=== PATIENT | female | born 2000 | race Caucasian/White ===

== ENCOUNTER → 2024-10-27 15:39 | Outpatient (CLI) | payer OTHER, SELFPAY ==
[2024-10-27 20:56] LABS: Urine Chlamydia NOT DETECTED; Urine N gonorrhoeae NOT DETECTED
== END ==
PROVIDERS: PCP Nurse Practitioner Family; Visit Provider Student in an Organized Health Care Education/Training Program
DX: Z34.80 Encounter for supervision of other normal pregnancy, unspecified trimester (principal)
CPT/HCPCS: 87491; 87591

== ENCOUNTER → 2024-11-17 13:14 | Outpatient (CLI) | payer OTHER, SELFPAY ==
[2024-11-17 14:20] LABS: Natera Collection Specimen Collected
[2024-11-17 15:05] LABS: Add Manual Diff / Slide Review NO; Basophils Absolute Auto 0 /uL (0-100); Basophils Percent Auto 0.2 % (0-2); Eosinophils Absolute Auto 100 /uL (0-450); Eosinophils Percent Auto 0.9 % (2-4); Hematocrit 36.3 % (36-46); Hemoglobin 12.3 g/dL (12.0-16.0); Lymphocytes Absolute Auto 1000 /uL (1100-4500); Mean Corpuscular Hemoglobin 29.3 PG (26-34); Monocytes Absolute Auto 300 /uL (0-900); Monocytes Percent Auto 4.5 % (3-14); Neutrophils Absolute Auto 5700 /uL (1500-7000); Neutrophils Percent Auto 80.4 % (50-75); Platelet Count 174 X10^3/uL (150-400); Red Blood Cell Count 4.22 X10^6/uL (4.0-5.2); Red Cell Distribution Width 13.1 % (11.6-14.8); White Blood Cell Count 7.1 X10^3/uL (4.5-11.0)
[2024-11-17 15:59] LABS: Hepatitis B Surface Antigen NEGATIVE s/c (NEGATIVE); Rubella Antibody IgG 26.4 IU/mL (>15)
[2024-11-17 16:14] LABS: HIV 1 & 2 Ab/Ag 4th Gen Combo NEGATIVE (NEGATIVE); Hep C Virus Ab w/Reflex Quant NEGATIVE s/c (NEGATIVE)
[2024-11-19 05:15] LABS: RPR Screen Non Reactive (Non Reactive)
[2024-11-19 06:07] LABS: Varicella IgG Antibody Non Reactive (Non Reactive)
== END ==
PROVIDERS: PCP Nurse Practitioner Family; Referring Provider Student in an Organized Health Care Education/Training Program; Visit Provider Student in an Organized Health Care Education/Training Program
DX: Z34.81 Encounter for supervision of other normal pregnancy, first trimester (principal)
CPT/HCPCS: 36415; 80055; 86787; 86803; 86850; 86900; 86901; 87389

== ENCOUNTER → 2025-01-12 06:59 | Outpatient (CLI) | payer OTHER, SELFPAY ==
--- NOTE | 2025-01-12 07:01 | DI.US.S_ITS ---
PROCEDURE: US OB >= 14 WEEKS FETUS INDICATIONS: 20 WEEK ANATOMY SCAN OUTSIDE/PRIOR DATING DATA: The calculations are made using the working MARIVEL of 06/01/2025. TECHNIQUE: Real-time scanning was performed of the fetus, with image documentation and biometric measurements. Endovaginal scanning: Not performed COMPARISON: None. FINDINGS: General: A single living intrauterine gestation is present. Presentation: Breech. Placenta: Placental position is posterior , without previa. Amniotic fluid index: 15.2 cm, normal range is 5-24 cm. Single deepest vertical pocket is 5.2 cm. heart rate: 136 beats per minute. Maternal cervical canal: 3.6 cm long. Normal lower limit is 2.5 cm. biometrics: Biparietal diameter: 4.8 cm, 20 weeks 3 days Head circumference: 17.6 cm, 20 weeks 1 day Abdominal circumference: 15.3 cm, 20 weeks 4 days Femur length: 3.0 cm, 19 weeks 3 days Clinically estimated gestational age: 20 weeks 0 days Composite gestational age from present scan: 20 weeks 1 day Estimated weight and percentile: 327 g, 46 percentile Anatomic survey: Neuro: Ventricles are non-dilated at less than 10 mm. Cisterna magna is normal at 3-11 mm. Cerebellum is normal in size and morphology. Nuchal skin fold: Normal at less than 6 mm between 14-21 weeks gestational age. Face: Nose and lips, facial profile are normal. Spine: No evidence for spina bifida. Heart: 4-chambered heart is present. Right ventricular outflow tract is not well visualized. Diaphragm: Diaphragm is intact. Stomach: Left-sided stomach is present. Kidneys: No hydronephrosis. Normal is less than 5 mm in 2nd trimester, less than 7 mm in 3rd trimester. Cord: 3-vessel cord has orthotopic insertion. Bladder: Normal in size. Extremities: All 4 extremities identified. IMPRESSION: Single living intrauterine at 20 weeks 0 days, MARIVEL of 06/01/2025. Estimated weight of 327 g, 46 percentile. Right ventricular outflow tract not well visualized. Recommend short-term follow-up. We strive to produce accurate, complete, and clear reports of imaging services. To assist us in improving patient care, this report was composed using standard report templates and voice recognition software. Therefore, it may contain abnormal punctuation, insertions and/or omissions. Occasional wrong-word or sound-alike substitutions may occur. Though we review the report and make efforts to correct it, we do recommend that the report be read carefully in proper context to recognize any text inaccuracies. Dictated by: Etienne Jackson M.D. on 01/12/2025 at 16:34 Approved by: Etienne Jackson M.D. on 01/12/2025 at 16:36
== END ==
PROVIDERS: PCP Nurse Practitioner Family; Referring Provider Student in an Organized Health Care Education/Training Program; Visit Provider Student in an Organized Health Care Education/Training Program
DX: Z34.92 Encounter for supervision of normal pregnancy, unspecified, second trimester (principal); Z3A.20 20 weeks gestation of pregnancy
CPT/HCPCS: 76811

== ENCOUNTER → 2025-02-10 10:47 | Outpatient (CLI) | payer OTHER, SELFPAY ==
--- NOTE | 2025-02-10 10:49 | DI.US.S_ITS ---
PROCEDURE: US OB FOLLOW UP INDICATIONS: RE-EVAL RVOT OUTSIDE/PRIOR DATING DATA: Working MARIVEL 06/01/2025 TECHNIQUE: Real-time scanning was performed of the fetus, with image documentation. COMPARISON: [facility], , OB >= 14 WEEKS FETUS, 01/12/2025, 7:16. FINDINGS: A single living intrauterine gestation is present. Presentation: Breech. Placenta: Placental position is posterior, without previa. Amniotic fluid index: 18 cm, normal range is 5-24 cm. Single deepest vertical pocket is 5.3 cm. heart rate: 144 beats per minute. Maternal cervical canal: 4.2 cm long. Normal lower limit is 2.5 cm. Clinically estimated gestational age: 24 weeks and 1 day RVOT is only seen on cine images. IMPRESSION: RVOT only captured on cine images, no gross abnormality identified, however still not fully seen on a single still image. Breech positioning. Normal CAROLINE. Dictated by: Juan Jose Hobson M.D. on 02/10/2025 at 16:27 Approved by: Juan Jose Hobson M.D. on 02/10/2025 at 16:31
== END ==
PROVIDERS: Referring Provider Student in an Organized Health Care Education/Training Program; Visit Provider Student in an Organized Health Care Education/Training Program
DX: Z34.82 Encounter for supervision of other normal pregnancy, second trimester (principal); Z3A.24 24 weeks gestation of pregnancy
CPT/HCPCS: 76816

== ENCOUNTER → 2025-02-26 10:26 | Outpatient (CLI) | payer OTHER, SELFPAY ==
[2025-02-26 12:24] LABS: Hematocrit 31.5 % (36-46); Hemoglobin 11.1 g/dL (12.0-16.0)
[2025-02-26 13:33] LABS: GTT (PREG) 1 Hour PP 50gm Dose 90 mg/dL (76-139)
== END ==
PROVIDERS: Referring Provider Student in an Organized Health Care Education/Training Program; Visit Provider Student in an Organized Health Care Education/Training Program
DX: Z13.0 Encounter for screening for diseases of the blood and blood-forming organs and certain disorders involving the immune mechanism (principal); Z13.1 Encounter for screening for diabetes mellitus
CPT/HCPCS: 82950; 85014; 85018

== ENCOUNTER → 2025-05-06 15:46 | Outpatient (CLI) | payer OTHER, SELFPAY ==
[2025-05-07 12:21] LABS: Strep Grp B PCR NEG for Grp B Strep
== END ==
PROVIDERS: Visit Provider Obstetrics & Gynecology
DX: Z34.93 Encounter for supervision of normal pregnancy, unspecified, third trimester (principal); Z3A.36 36 weeks gestation of pregnancy
CPT/HCPCS: 87653

== ENCOUNTER 2025-05-06 16:02 | Observation (INO) | payer OTHER, SELFPAY ==
--- NOTE | 2025-05-06 16:16 | DI.US.S_ITS ---
PROCEDURE: US OB BIOPHYSICAL PROFILE INDICATIONS: low amniotic fluid OUTSIDE/PRIOR DATING DATA: Last menstrual period (LMP): 08/25/2024. LMP-based estimated date of delivery (MARIVEL): 06/01/2025. The calculations are made using the clinical MARIVEL of 06/01/2025. TECHNIQUE: Real-time scanning was performed of the fetus, with image documentation and biometric measurements. Biophysical profile was also obtained. COMPARISON: [facility], OB FOLLOW UP, 02/10/2025, 11:04. FINDINGS: General: A single living intrauterine gestation is present. Presentation: Vertex. Placenta: Placental position is posterior , without previa. Amniotic fluid index: 7.3 cm, normal range is 5-24 cm. Single deepest vertical pocket is 2.8 cm. heart rate: 145 beats per minute. Maternal cervical canal: Not well seen Gestational age: 36 weeks 2 days Biophysical profile: Tone: 2 points. Movement: 2 points. Respiration: 2 points. Largest pocket of fluid: 2 points. IMPRESSION: Single live intrauterine with gestational age of 36 weeks 2 days. CAROLINE is within normal limits. BPP 8/8. We strive to produce accurate, complete, and clear reports of imaging services. To assist us in improving patient care, this report was composed using standard report templates and voice recognition software. Therefore, it may contain abnormal punctuation, insertions and/or omissions. Occasional wrong-word or sound-alike substitutions may occur. Though we review the report and make efforts to correct it, we do recommend that the report be read carefully in proper context to recognize any text inaccuracies. Dictated by: Maria Isabel Catalan M.D. on 05/06/2025 at 18:38 Approved by: Maria Isabel Catalan M.D. on 05/06/2025 at 18:40
--- NOTE | 2025-05-06 18:53 | PM.OBTRLD ---
Visit Information Visit Information Date of evaluation: 05/06/25 Primary OB Provider: Yessy Loja On-call OB Provider: Milena Cruz Reason for Evaluation: Yes non-stress test non-stress test reason: other (Positive for COVID, low fluid in the office) Comments/Additional reasons for admission: Patient is a 24-year-old 3 para 1 at 36-,2/7 weeks gestation who was sent to the center from the office for low fluid on ultrasound and positive COVID. Patient has upper respiratory symptoms. No significant cough. Good movement. No leakage of fluid or vaginal bleeding. [facility] Medical History (Updated 05/06/25 @ 15:58 by Danielle Church MD) COVID-19 affecting in third trimester Stress headaches Surgical History (Updated 10/21/24 @ 08:34 by Marguerite Saldivar, RN) H/O knee surgery Family History (Updated 10/21/24 @ 08:40 by Marguerite Saldivar, RN) Father Hypertension Diabetes mellitus Mother Hypertension Diabetes mellitus Sister Hypertension Diabetes mellitus Infertility Grandmother Diabetes mellitus Hyperlipidemia Hypertension Kidney failure Aunt Stomach cancer Uncle Lung cancer Uncle Kidney failure Pancreatic cancer Aunt Breast cancer Uncle Leukemia Social History marital status: details: : Felix Rueda number of children: 1 household members: spouse and children lives independently: Yes caregiver/support person: No housing: house pets and animals: No education level: high school 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 ) second hand exposure: No alcohol intake: former (3-4 drinks a month) substance use type: does not use during the past year weight has: decreased > 10 lbs (Lost 60 pounds working out and eating well in [place]) well-balanced diet: daily or most days daily servings fruits/ve or more times/day caffeine: No eating out: rarely or never Type(s) of exercise: walking, aerobic and weight lifting frequency: 5-6 times per week duration: 30-45 minutes/day Objective Labs Labs: Biophysical profile: 08/14. CAROLINE 7.3 cm Evaluation Evaluation Baseline heart rate: 135 Variability: Moderate (6-25) monitor accelerations: Present Monitor Decelerations: Absent Category of Tracing: Reactive Status: Category l Diagnosis, Plan/Disposition Plan/Disposition Plan: Assessment: 24-year-old 3 para 1 at 36-,2/7 weeks gestation Borderline amniotic fluid index BPP 08/14 Positive for COVID Plan: Follow-up in 5 days for repeat BPP and NST and CAROLINE Discussed kick counts and would like patient to do these 3 times a day Patient is to be off of work until delivery OB Disposition: home
== END 2025-05-06 18:53 | disposition home or self-care (01) ==
PROVIDERS: Admitting Provider Obstetrics & Gynecology; Referring Provider Obstetrics & Gynecology; Visit Provider Obstetrics & Gynecology
DX: O41.03X0 Oligohydramnios, third trimester, not applicable or unspecified (principal); O98.513 Other viral diseases complicating pregnancy, third trimester; U07.1 COVID-19; Z3A.36 36 weeks gestation of pregnancy
CPT/HCPCS: 59025; 76819; 87653; G0378; G0379

== ENCOUNTER 2025-05-11 12:55 | Outpatient (CLI) | payer OTHER, SELFPAY ==
--- NOTE | 2025-05-11 13:02 | DI.US.S_ITS ---
PROCEDURE: US OB BIOPHYSICAL PROFILE INDICATIONS: oligohydramnios-37 weeks OUTSIDE/PRIOR DATING DATA: Working MARIVEL: 06/01/2025 TECHNIQUE: Real-time scanning was performed of the fetus for biophysical profile, with image documentation. Endovaginal scanning: Not performed COMPARISON: [facility], , OB BIOPHYSICAL PROFILE, 05/06/2025, 17:32. FINDINGS: General: A single living intrauterine gestation is present. Presentation: Vertex. Placenta: Placental position is posterior , without previa. Amniotic fluid index: 9.5 cm, normal range is 5-24 cm. Single deepest vertical pocket is 5.4 cm. heart rate: 137 beats per minute. Maternal cervical canal not imaged. Clinically estimated gestational age: 37 weeks 0 days Biophysical profile: Tone: 2 points. Movement: 2 points. Respiration: 2 points. Largest pocket of fluid: 2 points. Umbilical artery Doppler: Not requested IMPRESSION: Single living intrauterine at 37 weeks 0 days. BPP 8 of 8. CAROLINE of 9.5 cm, deepest pocket of 5.4 cm. We strive to produce accurate, complete, and clear reports of imaging services. To assist us in improving patient care, this report was composed using standard report templates and voice recognition software. Therefore, it may contain abnormal punctuation, insertions and/or omissions. Occasional wrong-word or sound-alike substitutions may occur. Though we review the report and make efforts to correct it, we do recommend that the report be read carefully in proper context to recognize any text inaccuracies. Dictated by: Etienne Jackson M.D. on 05/11/2025 at 13:43 Approved by: Etienne Jackson M.D. on 05/11/2025 at 13:43
== END 2025-05-11 13:42 | disposition home or self-care (01) ==
LOC: LABOR 13:33 → OB 14:09
PROVIDERS: Referring Provider Obstetrics & Gynecology; Visit Provider Obstetrics & Gynecology
DX: O41.03X0 Oligohydramnios, third trimester, not applicable or unspecified (principal); Z3A.37 37 weeks gestation of pregnancy
CPT/HCPCS: 59025; 76819; G0378; G0379

== ENCOUNTER 2025-05-26 19:28 | Inpatient (IN) | payer OTHER, SELFPAY ==
[2025-05-26 20:27] LABS: Add Manual Diff / Slide Review NO; Hematocrit 32.3 % (36-46); Hemoglobin 11.3 g/dL (12.0-16.0); Lymphocytes Absolute Auto 1100 /uL (1100-4500); Mean Corpuscular HGB Conc 34.9 % (30-36); Mean Corpuscular Hemoglobin 29.8 PG (26-34); Mean Corpuscular Volume 85.4 fL (80-100); Platelet Count 153 X10^3/uL (150-400)
[2025-05-26] MEDS: DINOPROSTONE VAG (CERVIDIL) 10 MG VAG (21:37)
--- NOTE | 2025-05-27 07:53 | P.HPOB_ITS ---
OB HPI Date/Time Date of admission: 05/26/25 Date Patient Seen: 05/27/25 Time Patient Seen: 07:15 History of Present Condition Chief complaint: IOL MARIVEL Calculator 2 Estimated Delivery Date Method Current WG Current Estimate 06/01/25 Ultrasound #1 39w 2d Other Estimates 05/22/25 LMP (Certain) 40w 5d Estimated Gestational Age (weeks): 39.2 : 3 Para: 1 Narrative: 24yo at 39w2d by 9wk US admitted overnight for cervical ripening with planned IOL at term. OBHx notable for prior x1 (2020). course notable for +COVID at 36wga with mild symptoms, GBS negative, rubella immune. Patient admitted yesterday evening and cervidil placed for cervical ripening at 2100. Pt endorses good FM, denies VB, LOF, dysuria. Increasing cramping with occasional painful contractions. Agreeable to SVE with attempt at cervical bulb placement for further mechanical cervical ripening. Dating criteria OB: based on 1st trimester US only Ultrasounds: normal mid trimester US Abnormal ultrasound findings: limited visualization of RVOT without identified abnormality Obstetrical complications: other (mild COVID at 36wga ) Medical complications OB: none Indications Indication for induction OB: other (elective ) Preadmission Labs Last OB Lab Results: 2 Blood Type O Positive 05/26/25, 20:15 Antibody Screen Negative 05/26/25, 20:15 Hct, (36-46) 32.3 % L 05/26/25, 20:15 Hgb, (12.0-16.0) 11.3 g/dL L 05/26/25, 20:15 Hep Bs Antigen, (NEGATIVE) Negative s/c 11/17/24, 13: 20 Hepatitis C Antibody, (NEGATIVE) Negative s/c 5, 13:20 Rubella Antibody, (>15) 26.4 IU/mL 11/17/24, 13:20 VZV IgG Antibody, (Non Reactive) Non reactive 5, 13:20 Glucose 1 Hr 50 gm, (76-139) 90 mg/dL 02/26/25, 1 1:34 Group B Strep (PCR) Neg for grp b strep 05/06/25, 15:15 -: Chlamydia screen: negative and Gonorrhea screen: negative -: PAP smear: Abnormal (NILM/HPV+, repeat co-testing ) Genetic Screens: Cell-free DNA: Normal (low risk XX) and Alpha-fetoprotein: Normal Prior (ies) Past Pregnancies Del. Date GA/Weeks Labor Lgth Wt Sex Route Outcome Anesthesia Place Delv Breastfeed Preg Comp Name 07/06/20 6 wk 10/15/21 39.4 32 7 lb 13 oz Male vaginal live - full te rm epidural [facility] 6 months [place] Delivery Date: 07/06/20 Last Updated by: Marguerite Saldivar RN Suspected triplet , miscarriage. Treated with cytotec, hemorrhaged, went to ER and had D&C at [facility] Delivery Date: 10/15/21 Last Updated by: Marguerite Saldivar RN elective induction, no complications. Tolerated epidural well Hx # Term Pregnancies: 1 Number of Living Children: 1 Spontaneous abortions: 1 Evaluation Evaluation Baseline heart rate: 140 Variability: Moderate (6-25) monitor accelerations: Present Monitor Decelerations: Absent Contraction Frequency (minutes): 5 Uterine Contraction Intensity: Mild Category of Tracing: Reactive Status: Category l Dilation (cm): 1 Effacement (%): 30 Dilation: 1-2 cm Effacement: 0-30% station: -4 Position of cervix: posterior Consistency: firm Garcia score: 1 PFSH Medical History (Updated 05/06/25 @ 15:58 by Danielle Church MD) COVID-19 affecting in third trimester Stress headaches Surgical History (Updated 10/21/24 @ 08:34 by Marguerite Saldivar RN) H/O knee surgery Family History (Updated 10/21/24 @ 08:40 by Marguerite Saldivar RN) Father Hypertension Diabetes mellitus Mother Hypertension Diabetes mellitus Sister Hypertension Diabetes mellitus Infertility Grandmother Diabetes mellitus Hyperlipidemia Hypertension Kidney failure Aunt Stomach cancer Uncle Lung cancer Uncle Kidney failure Pancreatic cancer Aunt Breast cancer Uncle Leukemia Social History marital status: details: : Felix Rueda number of children: 1 household members: spouse and children lives independently: Yes caregiver/support person: No housing: house pets and animals: No education level: high school 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 ) second hand exposure: No alcohol intake: former (3-4 drinks a month) substance use type: does not use during the past year weight has: decreased > 10 lbs (Lost 60 pounds working out and eating well in [place]) well-balanced diet: daily or most days daily servings fruits/ve or more times/day caffeine: No eating out: rarely or never Type(s) of exercise: walking, aerobic and weight lifting frequency: 5-6 times per week duration: 30-45 minutes/day Meds Home Medications and Allergies Home Medications ?Medication ?Instructions ?Recorded ?Confirmed ?Type vitamin#30 30 mg iron-10 1 cap PO DAILY 10/2105/27/25 History mg iron-folic acid 1 mg-omg3 capsule [id number]-mdlxvndf 1 cap PO Q8H PRN jeff n #14 caps 02/16/25 05/26/25 Rx 50 mg-300 mg-40 mg capsule (Fioricet) magnesium sulfate 100 mg capsule 100 mg PO DAILY #90 c aps 02/16/25 05/26/25 Rx breast pump #1 ea 04/13/25 05/26/25 Rx Allergies Allergy/AdvReac Type Severity Reaction Status Date / Time No Known Allergies Allergy Verified 05/26/25 20:06 Review of Systems Review of Systems ROS: Yes All systems reviewed with the patient and are negative except as otherwise documented OB Exam Vital signs Blood Pressure: 105/56 Pulse Rate: 78 Respiratory Rate: 18 Temperature: 35.8 F HENMT Head: normal to inspection Resp Effort & Inspection: normal respiratory effort and able to speak in complete sentences Auscultation: clear to auscultation bilaterally Cardio Rate: regular rate Rhythm: regular rhythm Extremities Lower extremity: Yes normal to inspection GI Palpation: Yes soft Other: gravid, goldy cephalic 7.5# External Female Exam: Yes normal external appearance Other: bullard balloon placed with some difficulty secondary to posterior location/minimal effacement, instilled with 30cc saline Objective Labs 05/26/25 20:15 Labs: Laboratory Results - last 24 hr 05/26/25 20:15 WBC 9.1 RBC 3.78 L Hgb 11.3 L Hct 32.3 L MCV 85.4 MCH 29.8 MCHC 34.9 RDW 14.8 Plt Count 153 Neut % (Auto) 81.9 H Lymph % (Auto) 12.0 L Carson % (Auto) 4.6 Eos % (Auto) 1.1 L Baso % (Auto) 0.4 Neut # (Auto) 7400 H Lymph # (Auto) 1100 Carson # (Auto) 400 Eos # (Auto) 100 Baso # (Auto) 0 Blood Type O Positive Antibody Screen Negative Assessment and Plan Assessment and Plan Assessment and Plan narrative: 24yo at 39w2d by 9wk US presents for scheduled elective IOL IOL pt counseled on and in agreement with recommendation to start with mechanical ripening with placement of bullard balloon; pt tolerated placement well plan to start pitocin in 4-6h pending response to bullard, encourage ambulation in early labor GBS neg, rubella immune, remainder PNL as above and wnl patient is consented for induction of labor, vaginal/vaginal operative/ delivery as well as tranfusion of blood products as medically indicated anticipate Time-Based Coding :: [TOTAL MINUTES] spent with patient and on the chart (including review of chart, obtaining history, exam, reviewing outside data, placing orders, documenting exam and treatment plan, and counseling patient) on [DATE].
[2025-05-27 08:06] VITALS: BP 105/56; PULSE 78; RESP 18; TEMP 2.1; TEMP 35.8
--- NOTE | 2025-05-27 11:07 | PM.OBPNLAB ---
Date/Time Date Patient Seen: 05/27/25 Time Patient Seen: 11:07 Pain Control Pain control: tolerating well Comments: spontaneous expulsion of bullard balloon at 10:00 Pelvic Exam Dilation (cm): 2 Effacement (%): 50 station: -4 Amniotic membrane status: Intact Comments: bedside US confirms cephalic presentation Contractions Contractions on admission: none Monitor mode: External Contraction intensity: Mild Status status: Category l Heart Rate Baseline: 140 Monitor Accelerations: Present Monitor Decelerations: Absent Monitor Variability: Moderate Assessment and Plan Assessment: induction ongoing Comments: misoprostol 25mcg buccal q3h, reassess after 2 doses with planned replacement of bullard balloon vs initiation of pitocin cat 1 tracing maternal VSS/afebrile anticipate
--- NOTE | 2025-05-27 17:15 | PM.OBPNLAB ---
Date/Time Date Patient Seen: 05/27/25 Time Patient Seen: 17:15 Pain Control Pain control: tolerating well Comments: pt resting comfortably, states contractions/cramping is lasting longer but not necessarily more painful. Amenable to interval SVE Pelvic Exam Dilation (cm): 4 Effacement (%): 50 station: -3 Amniotic membrane status: Intact Contractions Contractions on admission: none Monitor mode: External Contraction intensity: Mild Status status: Category l Heart Rate Baseline: 140 Monitor Accelerations: Present Monitor Decelerations: Absent Monitor Variability: Moderate Assessment and Plan Assessment: induction ongoing Comments: s/p miso x2 with appropriate response start IV pitocin CEFM/toco cat 1 tracing, maternal VSS/afebrile Pt to request epidural PRN, anticipate AROM for further augmentation anticipate
[2025-05-27] MEDS: OXYTOCIN PREMIX 30 UNIT/500 ML PLAST..BAG IV (17:30)
[2025-05-27] MEDS: LACTATED RINGERS 1,000 ML 100 ML IV ×2 (17:34→22:46)
--- NOTE | 2025-05-27 22:18 | PM.AN.REGBLK ---
[facility] <Nadia Renee CRNA - Last Filed: 05/29/25 08:10> Pre-procedure Procedure: Continuous Lumbar Epidural for L&D Attending OB provider: Danielle Church PMH/ROS narrative: Healthy here for IOL requesting DIEGO for labor pain. PSH/Anesthesia history narrative: Knee surgery and previous epidural without anesthetic complications. Exam narrative: See pre-anesthesia eval. ASA Class: II Labs: Hct 32.3 % (36-46) L 05/26/25 20:15 Plt Count 153 X10^3/uL (150-400) 05/26/25 20:15 Medications: Current Medications Generic Name Dose Route Start Last Admin Trade Name Freq PRN Reason Stop Dose Admin Butorphanol Tartrate 0.5 mg 05/27/25 22:16 Butorphanol 1 Mg/Ml Vial IV 05/28/25 22:17 Q3HR PRN PRURITUS Calcium Carbonate 1,000 mg 05/26/25 19:38 Calcium Carbonate 500 Mg Tab PO Q2HR PRN Dyspepsia Carboprost Tromethamine 250 mcg 05/26/25 19:38 Carboprost 250 Mcg/Ml Ampul IM Q90M PRN Bleeding Diphenhydramine HCl 25 mg 05/27/25 22:16 Diphenhydramine 50 Mg/Ml Vial IV 05/28/25 22:17 Q3HR PRN PRURITUS Tranexamic Acid 1,000 mg/ 100 mls @ 600 mls/hr 05/26/25 19:38 Sodium Chloride IV NOW PRN Bleeding Oxytocin/Lactated Ringer's 30 unit in 500 mls @ 200 mls/hr 05/26/25 19:38 Oxytocin Premix IV CONT PRN Bleeding Protocol Oxytocin/Lactated Ringer's 30 unit in 500 mls @ 2 mls/hr 05/27/25 17:16 05/27/25 17:30 Oxytocin Premix IV 2 milliunit/min TITRATE LEONARDO 2 mls/hr Protocol Administration 2 MILLIUNIT/MIN Lidocaine HCl 20 ml 05/26/25 19:38 Lidocaine 1% 20 Ml INJ INTRA-OP PRN Post Delivery Methylergonovine Maleate 0.2 mg 05/26/25 19:38 Methylergonovine 0.2 Mg/Ml Vial IM NOW PRN Bleeding Methylergonovine Maleate 0.2 mg 05/26/25 19:38 Methylergonovine 0.2 Mg Tablet PO Q6HR PRN Heavy Bleeding Metoclopramide HCl 10 mg 05/27/25 22:16 Metoclopramide 10 Mg/2 Ml Inj IV 05/28/25 22:17 Q4H PRN Nausea Misoprostol 400 mcg 05/26/25 19:38 Misoprostol 200 Mcg Tablet SL NOW PRN Bleeding Misoprostol 800 mcg 05/26/25 19:38 Misoprostol 200 Mcg Tablet SC NOW PRN Bleeding Nalbuphine HCl 5 mg 05/27/25 22:16 Nalbuphine 20 Mg/Ml Ampul IV Q6H PRN PRURITIS Naloxone HCl 0.2 mg 05/26/25 19:38 Naloxone 0.4 Mg/Ml Vial IV Q2MIN PRN Opiate Reversal Naloxone HCl 0.4 mg 05/27/25 22:16 Naloxone 0.4 Mg/Ml Vial IV Q2MIN PRN Opiate Reversal Ondansetron HCl 4 mg 05/26/25 19:38 Ondansetron 4 Mg/2 Ml Inj IV Q4HR PRN Nausea And Vomiting Ondansetron HCl 4 mg 05/27/25 22:16 Ondansetron 4 Mg/2 Ml Inj IV 05/28/25 22:17 Q6HR PRN Nausea Oxytocin 10 unit 05/26/25 19:38 Oxytocin 10 Unit/Ml Vial IM NOW PRN Bleeding Allergies: Allergies Allergy/AdvReac Type Severity Reaction Status Date / Time No Known Allergies Allergy Verified 05/26/25 20:06 Procedure Insertion date: 05/27/25 Insertion time: 22:04 Prep/Local: 1% lidocaine (5mL and CHG to back for skin prep.) Interspace: L3/4 Patient position: sitting Needle: 18 gauge Jessietead Loss of resistance with: saline RYLAND at (cm): 6 Catheter placed at SKIN (cm): 12 Catheter in SPACE (cm): 6 Sensory level: T10 Insertion: No CSF, No Blood, No Paresthesia with insertion, No Paresthesia with injection and No Test dose reaction Initial Medications TEST DOSE time: 22:05 TEST DOSE: 1.5% lidocaine with epinephrine 1:200k (mL): 3 BOLUS DOSE time: 22:11 BOLUS DOSE (mL): 8 (plus 10mg IV ephedrine prophylactically for soft starting SBP in the 100's) BOLUS DOSE med: other (infusate) Infusion INFUSION: 0.125% bupivacaine and with fentanyl 2 mcg/mL Initial rate (mL/hr): 8 Post-procedure Anesthesia date START: 05/27/25 Anesthesia time START: 22:00 <Donald Vega, DO - Last Filed: 05/28/25 20:46> Post-procedure Anesthesia date END: 05/28/25 Anesthesia time END: 08:24 Post-procedure Anesthesia Assessment: Yes CV function: HR/BP stable, Yes Resp function: RR/sat/airway adequate, Yes Post-op hydration adequate, Yes Pain control adequate, Yes Nausea & vomiting absent, Yes Temperature > 36 C, Yes Mental status appropriate and No Anesthesia complications
[2025-05-27] MEDS: ePHEDrine 50 MG/ML VIAL 10 MG IV (23:38)
[2025-05-28] MEDS: ePHEDrine 50 MG/ML VIAL 10 MG IV (00:24)
[2025-05-28] MEDS: diphenhydrAMINE 50 MG/ML VIAL 25 MG IV (02:11)
[2025-05-28] MEDS: LACTATED RINGERS 1,000 ML 100 ML IV (02:50)
[2025-05-28] MEDS: FENT 2MCG/ML BUPIV 0.125% EPI 200 MCG/100 ML PLAST..BAG 8 MCG EPIDURAL (04:46)
[2025-05-28 06:17] VITALS: BP 105/56; PULSE 78; RESP 18; TEMP 2.1; TEMP 35.8
--- NOTE | 2025-05-28 08:47 | PM.OBPRVD ---
Labor & Delivery Delivery date: 05/28/25 Delivery Time: 08:24 Intrapartal Events: None Cervical ripening method: per misoprostal protocol (followed by bullard bulb) Induction method: per pitocin protocol Delivery monitor: external FHT Route of delivery: L&D Laceration Description: None Estimated blood loss (mL): 200 Anesthesia Type: Epidural Narrative: The patient progressed to C/C/+2 with pitocin augmentation and epidural anesthesia. After approximately 1 set of maternal pushing efforts, the delivered in OA position and restituted MI. The anterior shoulder delivered with gentle downward pressure. The posterior shoulder and rest of body delivered with ease. The cord was doubly clamped and cut after a 30sec delay with the infant placed on maternal abdomen. The placenta delivered spontaneously and was intact with a 3-vessel cord. The fundus was noted to be firm with bimanual massage and pitocin. Inspection of the cervix, vagina, and perineum was notable for no lacerations. The patient tolerated delivery well and remained in the labor room with the infant at the bedside. Plan for aftercare: Routine care
[2025-05-28] MEDS: DERMOPLAST SPRAY 20% 60 ML 1 SPRAY TOP (13:14)
[2025-05-28] MEDS: IBUPROFEN 600 MG TABLET PO (19:21)
[2025-05-28] MEDS: ACETAMINOPHEN 325 MG TABLET 650 MG PO (19:21)
[2025-05-29] MEDS: IBUPROFEN 600 MG TABLET PO ×2 (01:59→09:11)
[2025-05-29] MEDS: ACETAMINOPHEN 325 MG TABLET 650 MG PO ×2 (02:00→09:11)
--- NOTE | 2025-05-29 09:03 | P.DS_ITS ---
Discharge Providers Provider Date of admission: 05/26/25 19:28 Discharge Date: 05/29/25 Primary care physician: Jennifer PERLA Provider Consults: 05/26/25 19:38 Consult to Anesthesiology Urgent Comment: Consulting Provider: Anesthesiologist Reason for consultation: Epidural 05/28/25 13:07 Consult to Fire Apparatus Sprinkler Inspector Routine Comment: Discharge provider: Latanya Luevano MD Summary Hospital Course Date Patient Seen: 05/29/25 Diagnoses: Term Hospital Course: This is a 24 yo G3 now P2 who presented at 39w2d for elective IOL. She delivered at 39w3d via uncomplicated under epidural anesthesia. IOL included miso, bullard bulb, pitocin, SROM. GBS negative. Delivery and IOL uncomplicated. Patient did well , will follow up with primary OB for 6 wk PP. Peripartum Data Delivery Method: Natural Vaginal Laceration Description: None complications: none Status at Discharge Cognitive/behavioral status at discharge: oriented Functional status at discharge: independent ambulation Overall status at discharge: patient is back to baseline Time Spent with Patient Time attestation: Total time spent providing and/or coordinating discharge services: 30 minutes Time spent: Greater than 30 minutes Objective Labs 05/26/25 20:15 Exam Narrative Exam Narrative: NAD, resting comfortably in bed Discharge Plan Discharge Plan Patient Disposition: Home Discharge orders & Medications Prescriptions: New acetaminophen 325 mg Tablet 650 mg PO Q6H PRN (Reason: Pain, Mild (1-3)) Qty: 60 0RF ibuprofen 600 mg Tablet 600 mg PO Q6H Qty: 60 0RF Continued PNV #[id number] acid-omega3 30 mg iron-10 mg iron-1 mg capsule 1 cap PO DAILY magnesium sulfate 100 mg capsule 100 mg PO DAILY Qty: 90 0RF [id number] [Fioricet] 50-300-40 mg capsule 1 cap PO Q8H PRN (Reason: pain) Qty: 14 1RF (DME) breast pump Device See Rx Instructions .ROUTE .MEDSUPPLY Qty: 1 0RF Rx Instructions: Double electric Follow up/Referrals: Provider,Jennifer PERLA [Primary Care Provider, Family Practice] Yessy Loja DO [Physician, KNITTING TEACHER] - 2 Weeks Referral Note: appt #1: June 16 at 4:15 PM, telehealth appt (phone call) appt #2: July 10 at 10:45 AM (come to [address] [place] [address]) Visit Report/Discharge Packet Stand Alone Forms: Discharge: Care, Patient Portal/API, Stroke Signs & Symptoms Discharge Data Primary Care Provider: Jennifer Winkler
[2025-05-29] MEDS: MEASLES,MUMPS,RUBELLA VACC/PF 0.5 ML VIAL SUBCUT (11:34)
== END 2025-05-29 11:40 | disposition home or self-care (01) | DRG 807 ==
PROVIDERS: Student in an Organized Health Care Education/Training Program; Admitting Provider Obstetrics & Gynecology; Referring Provider Obstetrics & Gynecology; Visit Provider Obstetrics & Gynecology
DX: O80 Encounter for full-term uncomplicated delivery (principal); Z37.0 Single live birth; Z3A.39 39 weeks gestation of pregnancy
CPT/HCPCS: 36415; 85025; 86850; 86900; 86901; G0379; J1200; J2590